=== PATIENT | female | born 1970 | race Caucasian/White ===

== ENCOUNTER 2023-09-28 20:06 | Emergency (ER) | payer OTHER ==
[2023-09-28 20:16] VITALS: BP 110/75; PULSE 92; RESP 18; TEMP 98.2; BMI 23.0
[2023-09-28] MEDS ORDERED: MECLIZINE HCL 25 MG TABLET (FP) ONE (20:47)
[2023-09-28] MEDS: MECLIZINE HCL 25 MG TABLET (FP) PO ONE (21:06)
[2023-09-28] MEDS: SODIUM CHLORIDE 0.9% 500 ML INFUS.BAG IV ONE (21:06)
[2023-09-28] MEDS ORDERED: diazePAM 5 MG TABLET ONE (21:56)
[2023-09-28] MEDS: diazePAM 5 MG TABLET PO ONE (22:05)
== END 2023-09-28 23:00 | disposition home or self-care (01) ==
LOC: JERFT 20:06
DX: H93.13 Tinnitus, bilateral (principal); R42 Dizziness and giddiness; H92.03 Otalgia, bilateral
CPT/HCPCS: 99283-25

== ENCOUNTER 2023-10-07 10:52 | Emergency (ER) | payer OTHER ==
[2023-10-07 10:59] VITALS: BP 123/79; PULSE 77; RESP 18; TEMP 97.5; BMI 23.2
== END 2023-10-07 13:03 | disposition home or self-care (01) ==
LOC: JER 10:52
DX: R42 Dizziness and giddiness (principal); R11.0 Nausea
CPT/HCPCS: 93005; 93010; 99283-25

== ENCOUNTER 2023-10-31 03:10 | Emergency (ER) | payer OTHER ==
[2023-10-31 03:26] VITALS: BP 129/92; PULSE 107; RESP 18; TEMP 97.5; BMI 23.0
[2023-10-31] MEDS ORDERED: METOCLOPRAMIDE HCL INJECTION 10 MG/2 ML VIAL ONE (04:08)
[2023-10-31] MEDS: SODIUM CHLORIDE 0.9% 500 ML INFUS.BAG IV ONE (04:21)
[2023-10-31] MEDS: METOCLOPRAMIDE HCL INJECTION 10 MG/2 ML VIAL IVPB ONE (04:21)
[2023-10-31 04:36] LABS: BASO % 0.5 % (0-2.0); EOS % 2.2 % (0-4.5); HEMATOCRIT 38.4 % (32.4-45.2); HEMOGLOBIN 13.1 GM/dL (10.7-15.3); LYMPH % 22.8 % (8-40); MCH 30.8 pg (25.7-33.7); MCHC 34.2 g/dl (32.0-36.0); MEAN CELL VOLUME 89.9 fl (80-96); MEAN PLT VOLUME 7.8 fl (7.5-11.1); MONO % 11.6 % (3.8-10.2); NEUT % 62.9 % (42.8-82.8); PLATELET COUNT 258 10^3/uL (134-434); RBC 4.27 M/mm3 (3.60-5.2); RDW 13.2 % (11.6-15.6); WHITE BLOOD COUNT 6.6 K/mm3 (4.0-10.0)
[2023-10-31 06:00] LABS: POTASSIUM 4.4 mmol/L (3.5-5.1)
[2023-10-31 06:02] LABS: BLOOD UREA NITROGEN 15.8 mg/dL (7-18)
[2023-10-31 06:03] LABS: ALBUMIN 3.4 g/dl (3.4-5.0)
[2023-10-31 06:06] LABS: CREATININE 0.6 mg/dL (0.55-1.3)
[2023-10-31 06:07] LABS: BILIRUBIN,TOTAL 0.1 mg/dL (0.2-1); TOT PROT 6.6 g/dl (6.4-8.2)
== END 2023-10-31 06:35 | disposition home or self-care (01) ==
LOC: JER 03:10
PROC: 3E033GC Introduction of Other Therapeutic Substance into Peripheral Vein, Percutaneous Approach (ICD-10-PCS; principal; 2023-10-31)
DX: R51.9 Headache, unspecified (principal); R05.9 Cough, unspecified; R00.2 Palpitations; R42 Dizziness and giddiness; R09.81 Nasal congestion; J02.9 Acute pharyngitis, unspecified; R07.81 Pleurodynia; R00.0 Tachycardia, unspecified; U07.1 COVID-19
CPT/HCPCS: 0241U-QW; 36415; 71046-TC-FY; 80053; 85025; 93005; 93010; 99285-25